=== PATIENT | female | born 1985 | race Caucasian/White ===

== ENCOUNTER 2017-07-04 17:28 | Observation (INO) | payer BC, MEDICAID, OTHER, SELFPAY ==
[2017-07-04] MEDS ORDERED: Ondansetron ODT 4 MG TAB ONE (17:42)
[2017-07-04 18:44] LABS: #Lymphocytes 0.8 thou/uL (1.20-3.40); #Monocytes 0.9 thou/uL (0.11-0.59); #Neutrophils 15.8 thou/uL (1.40-6.50); %Basophils 0.1 % (0.0-1.0); %Eosinophils 0.1 % (0.0-10.0); %Lymphocytes 4.7 % (21.0-51.0); %Monocytes 4.8 % (0.0-10.0); %Neutrophils 90.3 % (42.0-75.0); Hemoglobin 15.1 g/dL (12.0-16.0); Mean Corpuscular HGB CONC 32.5 g/dL (32.0-36.0); Mean Corpuscular Hemoglobin 29.9 pg (27.0-31.0); Mean Platelet Volume 6.9 fL (7.4-10.4); Platelet Count 265 thou/uL (130-400); RBC Distribution Width 12.5 % (11.5-14.5); Red Blood Cell (RBC) Count 5.06 mill/uL (4.20-5.40); White Blood Cell (WBC) Count 17.5 thou/uL (4.8-10.8)
[2017-07-04 18:52] LABS: ALT (SGPT) 13 U/L (8-55); AST (SGOT) 16 U/L (5-34); Albumin 5.2 g/dL (3.5-5.0); Alkaline Phosphatase 65 U/L (40-150); Anion Gap 12 mmol/L (10-20); BUN (Urea Nitrogen) 14 mg/dL (7.0-18.7); Bilirubin, Total 0.6 mg/dL (0.2-1.2); Calc. Creatinine Clearance 0 mL/min (70-130); Calcium 10.3 mg/dL (7.8-10.44); Carbon Dioxide 23 mmol/L (22-29); Chloride 106 mmol/L (98-107); Estimated GFR-MDRD 85; Globulin 3.7 g/dL (2.4-3.5); Glucose 106 mg/dL (70-105); Lipase 13 U/L (8-78); Potassium 3.5 mmol/L (3.5-5.1); Protein, Total 8.9 g/dL (6.0-8.3); Sodium 137 mmol/L (136-145)
[2017-07-04 19:16] LABS: Bilirubin Small (Negative); Blood, Urine Large (Negative); Clarity CLOUDY (Clear); Glucose, Urine (Dipstick) Negative (Negative); Leukocyte Trace (Negative); Nitrite Negative (Negative); Pregnancy Test - Urine (BHCG) Negative (Negative); Pregu Control Background? CLEAR/WHITE (CLR/WHITE); Pregu Control Bar Appear? YES (CONTROL BAR); Protein, Urine (Dipstick) 30 mg/dL (Neg-Trace); Specific Gravity 1.033 (1.002-1.036); Specific Gravity, Urine 1.033 (1.002-1.036); Urobilinogen 0.2 mg/dL (0.2-1.0); pH, Urine 5.5 (5.0-9.0)
[2017-07-04 19:18] LABS: Bacteria/HPF Rare-Few HPF (None Seen); Pathc Cast-AUWi Flag 2.47 (0-2.49)
[2017-07-04 19:42] LABS: Hyaline Casts/LPF 0-3 HYALINE CAST LPF (0-3 Hyaline); RBC/HPF GREATER THAN 50-TNTC HPF (0-3)
--- NOTE | 2017-07-04 19:48 | ULT ---
RIGHT UPPER QUADRANT ABDOMINAL ULTRASOUND: 07/04/17 COMPARISON: 08/12/12. HISTORY: Right upper quadrant abdominal pain. TECHNIQUE: Multiplanar jorge scale and color doppler images were obtained in a right upper quadrant abdominal ult rasound. FINDINGS: The liver is normal in echogenicity without focal lesions or intrahepatic ductal dilatation. The gall bladder is normal without stones, sludge, gallbladder wall thickening, or pericholecystic fluid. The common bile duct is normal measuring 5 mm. The visualized portions of the pancreas are unremarkable. The right kidney is normal in echogenicity without hydronephrosis or calculus and measures 12.4 cm in length. IMPRESSION: Unremarkable exam. POS: [facility]
[2017-07-04] MEDS ORDERED: Promethazine HCl 25 MG/ML VIAL ONE (19:56)
[2017-07-04] MEDS ORDERED: Pantoprazole 40 MG VIAL ONE (19:56)
--- NOTE | 2017-07-04 21:09 | RAD ---
TWO VIEWS OF THE ABDOMEN AND UPRIGHT VIEW OF THE CHEST: 07/04/17 COMPARISON: None. HISTORY: Sharp abdominal pain with burning sensation in the chest. FINDINGS: Supine and upright views of the abdomen and upright view of the chest shows a nonspecific, nonobstruc jessica bowel gas pattern. Tubular occlusion devices are seen in the pelvis. No free air or air fluid lev els are seen on upright examination. The cardiomediastinal silhouette is normal in size. there is no evidence of consolidation, mass or pl eural effusion. IMPRESSION: Unremarkable exam. POS: [facility]
[2017-07-04] MEDS ORDERED: Lidocaine Viscous Sol 2% 15 ml UD Cup ONE (21:57)
[2017-07-04] MEDS ORDERED: Mag-Al 1200 mg/1200 mg/30 ML UDCUP ONE (21:57)
[2017-07-04 23:19] LABS: Amphetamine Not Detected (NotDetected); Barbiturates Screen Not Detected (NotDetected); Benzodiazepine Screen Not Detected (NotDetected); Cocaine Metabolite Screen Not Detected (NotDetected); Medtox Control Line Valid? VALID (VALID); Medtox Reader # READER 1; Methadone Not Detected (NotDetected); Methamphetamine Not Detected (NotDetected); Opiate Screen Not Detected (NotDetected); Oxycodone Screen Not Detected (NotDetected); Phencyclidine (PCP) Not Detected (NotDetected); THC/Cannabinoid Screen Detected (NotDetected); Tricyclic Screen Not Detected (NotDetected)
[2017-07-04] MEDS ORDERED: Haloperidol Lactate 5 MG/ML VIAL ONE (23:26)
[2017-07-05] MEDS ORDERED: Acetaminophen 325 MG TAB PO PRN (00:10)
[2017-07-05] MEDS ORDERED: Ondansetron HCl/PF 4 MG/2 ML Vial IVP PRN (00:10)
--- NOTE | 2017-07-05 00:16 | PDOC.FPRHP ---
- History of Present Illness Chief Complaint: abd pain, n/v History of Present Illness: Obie Rudd is a 31 year old female with a PMH of gastritis who presented to the ED with complaints of abdominal pain and n/v. She states that the abdominal pain started intensified today. States that she has chronic abdominal pain that is normal controlled with OTC zantac and tums. The pain was much worse today and associated with nausea and vomiting, prompting her to come to the ED. She was admitted for similar symptoms in 2016 and had EGD performed at that time showing erosive gastritis. She uses marijuana daily to help her go to sleep. The pain is located in the epigastric region and radiates to her back. Describes pain as burning sensation. Denies fever, chills, chest pain, dyspnea, dysuria, increased urinary frequency, GI bleeding. ED Course: In the ED, she received zofran 4 mg X2, 1L NS bolus X2, IV protonix, phenergan, GI cocktail-white, haldol 2 mg, ketamine 0.25 mg/kg. - Allergies/Adverse Reactions Allergies Allergy/AdvReac Type Severity Reaction Status Date / Time No Known Allergies Allergy Verified 07/05/17 01:34 - Home Medications Medication Instructions Recorded Confirmed Type Omeprazole 40 mg PO DAILY #30 capsule. 07/05/17 Rx Ondansetron [Zofran ODT] 4 mg PO Q4HR PRN #30 tab 07/05/17 Rx Comments: patient states that she does not take any regular home medications - History PMHx: Erosive gastritis PSHx: essure FHx: noncontributory Social: endorses daily marijuana use, 1 ppd smoker, social alcohol drinker - Review of Systems General: reports: weight/appetite/sleep changes, fatigue. denies: fever/chills , night sweats Eyes: denies: eye pain, vision changes ENT: denies: nasal congestion, rhinorrhea Respiratory: denies: cough, congestion, shortness of breath, exercise intolerance Cardiovascular: denies: chest pain, palpitation, edema, paroxysmal nocturnal dyspnea, orthopnea Gastrointestinal: reports: nausea, vomiting, abdominal pain. denies: diarrhea, constipation, GI bleeding Genitourinary: denies: incontinence, dysuria, polyuria Skin: denies: rashes, lesions, jaundice Musculoskeletal: denies: pain, tenderness, stiffness, swelling Neurological: denies: numbness, syncope, seizure Psychological: denies: anxiety, depression - Vital signs BP: 125/87 HR: 94 RR: 18 Tmax: 98.9 Pox: 99% on RA Wt: 77.7 kg - Physical Exam Constitutional: NAD, awake, alert and oriented, well developed HEENT: normocephalic and atraumatic, PERRLA, EOMI, conjunctiva clear, no scleral icterus, grossly normal vision, TM's clear and intact, grossly normal hearing, normal nasal mucosa, MMM, oropharynx clear Neck: supple, FROM, trachea midline, no LAD Chest: no-tender to palpation Heart: RRR, normal S1/S2, no murmurs/rubs/gallops, pulses present, no edema Lungs: CTAB, no respiratory distress, good air movement, no rales/rhonchi Abdomen: soft, bowel sounds present, no masses/distention, other (no CVAT) -Abdomen: mild ttp in epigastric region Musculoskeletal: normal structure, normal tone, ROM grossly normal Neurological: no focal deficit, CN II-XII intact, normal sensation Skin: no rash/lesions, good turgor, capillary refill <2 seconds Heme/Lymphatic: no unusual bruising or bleeding, no purpura Psychiatric: normal mood and affect, intact recent and remote memory, other ( poor insight) FMR H&P: Results - Labs Result Diagrams: 07/05/17 04:28 07/05/17 04:28 Lab results: WBC 17.5 thou/uL (4.8-10.8) H 07/04/17 18:36 Hgb 15.1 g/dL (12.0-16.0) 07/04/17 18:36 Hct 46.5 % (36.0-47.0) 07/04/17 18:36 MCV 92.0 fl (81.0-99.0) 07/04/17 18:36 Plt Count 265 thou/uL (130-400) 07/04/17 18:36 Neutrophils % 90.3 % (42.0-75.0) H 07/04/17 18:36 Sodium 137 mmol/L (136-145) 07/04/17 18:36 Potassium 3.5 mmol/L (3.5-5.1) 07/04/17 18:36 Chloride 106 mmol/L (98-107) 07/04/17 18:36 Carbon Dioxide 23 mmol/L (22-29) 07/04/17 18:36 BUN 14 mg/dL (7.0-18.7) 07/04/17 18:36 Creatinine 0.79 mg/dL (0.6-1.1) 07/04/17 18:36 Glucose 106 mg/dL (70-105) H 07/04/17 18:36 Calcium 10.3 mg/dL (7.8-10.44) 07/04/17 18:36 Total Bilirubin 0.6 mg/dL (0.2-1.2) 07/04/17 18:36 AST 16 U/L (5-34) 07/04/17 18:36 ALT 13 U/L (8-55) 07/04/17 18:36 Alkaline Phosphatase 65 U/L (40-150) 07/04/17 18:36 Serum Total Protein 8.9 g/dL (6.0-8.3) H 07/04/17 18:36 Albumin 5.2 g/dL (3.5-5.0) H 07/04/17 18:36 Lipase 13 U/L (8-78) 07/04/17 18:36 Urine Ketones 80 mg/dL (Negative) H 07/04/17 18:24 Urine Blood Large (Negative) H 07/04/17 18:24 Urine Nitrite Negative (Negative) 07/04/17 18:24 Ur Leukocyte Esterase Trace (Negative) H 07/04/17 18:24 Urine RBC GREATER THAN 50-TNTC HPF (0-3) H 07/04/17 18:24 Urine WBC 4-6 HPF (0-3) H 07/04/17 18:24 Ur Squamous Epith Cells 11-20 HPF (0-3) H 07/04/17 18:24 Urine Bacteria Rare-Few HPF (None Seen) 07/04/17 18:24 - EKG Interpretation EKG: NSR FMR H&P: A/P - Problem List (1) Abdominal pain Status: Acute Code(s): R10.9 - UNSPECIFIED ABDOMINAL PAIN (2) Nausea & vomiting Status: Acute Code(s): R11.2 - NAUSEA WITH VOMITING, UNSPECIFIED - Plan (1) Gastritis, erosive: suspected - Hx of erosive gastritis in 2016 on EGD - DDx also includes ulcer or H. pylori or cyclic vomiting syndrome or cannabinoid hyperemesis syndrome - Continue n/v control with zofran - Continue GI cocktail, IV pepcid, IV protonix - Check H. pylori Ab and Ag (2) Intractible n/v - Vomiting decreased in ED - see above (3) Marijuana abuse - Likely contributing to symptoms - Recommended cessation - pt denied use repeatedly until UDS returned positive CODE STATUS: FULL CODE Disposition/LOS: Anticipate discharge home after <48 obs FMR H&P: Upper Level - Pertinent history PCP: [facility] Patient is a 31yo CF with PMHx of GERD, mild erosive gastritis (EGD on 09/2015) and H.pylori (2016) who presents with epigastric pain, nausea and vomiting. Patient reports hx of epigastric pain at baseline but reports it worsened today. Associated with N/V, chills and dizziness. States that everything she eats makes it worse. Denies any hematemesis or coffee ground emesis. She was hospitalized for similar presentation in 2016 where she had an EGD done by Dr. Ragland showing mild erosive gastritis. Biopsy was negative for H.pylori. However , according to records she had been diagnosed with H. pylori by her PCP earlier and was on abx for treatment. She was discharged on PPI but states she lost her job and has not been able to afford any of her meds. Denies NSAID use. ED: ketamine 0.25mg/kg IV x2, 1L NS x2, GI cocktail, protonix 40iv, Phenergan 12.5mg IV, Zofran 4mg IV - Pertinent findings T N/A BP 125/87 HR 94 RR 18 O2 99% on RA Wt 77kg General: NAD Heart: S1 S2, RRR Lungs: CTAB Abd: soft, TTP at epigastric Ext: no cyanosis or edema WBC 17.5 AST/ALT 16/13 Lipase 13 Amylase 61 Tbili 0.6 Alk Phos 65 EKG: no QTc prolongation RUQ US: negative KUB: negative - Plan Date/Time: 07/05/17 0016 1. Intractable N/V w/ epigastric pain: Patient with hx of mild erosive gastritis on EGD in 2016 and hx of H. pylori. Has not been taking PPI as she recently lost her job and cannot afford her medications. KUB and RUQ negative. Lipase/amylase negative. Suspect likely 2/2 exacerbation of gastritis vs. H.pylori vs cannabinoid hyperemesis. Symptomatic control with GI cocktail, protonix and Zofran. Obtain H. pylori stool Ag. 2. Marijuana abuse: patient repeatedly denied any use of drugs until UDS revealed + for marijuana. Admits to using it nightly now. 3. Leukocytosis: currently no source of infection. Monitor 4. PILAR: previously taking Effexor but has not been able to afford medications as of late. Hold anyways due to risk of QTc prolongation while on zofran. 5. PPx: SCDs/protonix 6. Diet: NPO 7. Code Status: Full I, Eve Reinoso, have evaluated this patient and agree with findings/ plan as outlined by international account manager resident. Pertinent changes/additions are listed here. Attending Addendum - Attending Addendum Date/Time: 07/05/17 0300 I personally evaluated the patient and discussed the management with Dr. Garner and Dr. Reinoso I agree with the History, Examination, Assessment and Plan documented above with any addition or exceptions noted below. 31 yo female placed in obs overnight for evaluation of persistent N/V with abdominal pain. Labs reviewed. Will treat symptomatically. Restart PPI. History of cannibus abuse possibly a component as well. No sick contacts but also possible. Trend labs in Am. Imaging reviewed. Lisy
[2017-07-05] MEDS: Sodium Chloride 0.9% 1,000 ML IV SCH ×2 (01:22→09:49)
[2017-07-05 01:32] VITALS: BMI 26.8
[2017-07-05] MEDS ORDERED: Ketorolac Tromethamine 30 MG/ML VIAL IM SCH (03:30)
[2017-07-05 04:48] LABS: #Lymphocytes 0.6 thou/uL (1.20-3.40); #Monocytes 0.2 thou/uL (0.11-0.59); #Neutrophils 9.2 thou/uL (1.40-6.50); %Eosinophils 0.1 % (0.0-10.0); %Lymphocytes 5.9 % (21.0-51.0); %Monocytes 2.4 % (0.0-10.0); %Neutrophils 91.7 % (42.0-75.0); Hemoglobin 12.8 g/dL (12.0-16.0); Mean Corpuscular HGB CONC 33.6 g/dL (32.0-36.0); Mean Corpuscular Volume 92.2 fl (81.0-99.0); Mean Platelet Volume 6.8 fL (7.4-10.4); Platelet Count 216 thou/uL (130-400); RBC Distribution Width 12.4 % (11.5-14.5); Red Blood Cell (RBC) Count 4.13 mill/uL (4.20-5.40); White Blood Cell (WBC) Count 10.1 thou/uL (4.8-10.8)
[2017-07-05 05:02] LABS: Anion Gap 9 mmol/L (10-20); BUN (Urea Nitrogen) 11 mg/dL (7.0-18.7); Calc. Creatinine Clearance 163 mL/min (70-130); Calcium 8.8 mg/dL (7.8-10.44); Carbon Dioxide 22 mmol/L (22-29); Chloride 110 mmol/L (98-107); Estimated GFR-MDRD Greater than 90; Glucose 124 mg/dL (70-105); Potassium 3.5 mmol/L (3.5-5.1); Sodium 137 mmol/L (136-145)
[2017-07-05] MEDS ORDERED: Pantoprazole 40 MG VIAL IVP SCH (09:00)
[2017-07-05] MEDS ORDERED: Famotidine/PF 20 mg/2ml Vial SLOW IVP SCH (09:00)
--- NOTE | 2017-07-05 09:14 | PDOC.FM ---
- Subjective Subjective: Pt had continued vomiting overnight. Vomited shortly after receiving GI cocktail. Otherwise, reports pain is improved and she feels slightly better. Denies cp, sob, diarrhea and constipation. Did have diarrhea yesterday. No melena, coffee ground emesis or hematemesis. - Objective Vital Signs & Weight: Vital Signs (12 hours) Temp Pulse Resp BP Pulse Ox 07/05/17 07:18 98.5 F 94 20 07/05/17 07:16 98.5 F 94 20 134/71 96 I&O: 07/04/17 07/05/17 07/06/17 06:59 06:59 06:59 Intake Total 529 Output Total 200 Balance 329 Result Diagrams: 07/05/17 04:28 07/05/17 04:28 <Emery Fulton - Last Filed: 07/05/17 09:11> - Objective Vital Signs & Weight: Vital Signs (12 hours) Temp Pulse Resp BP Pulse Ox 07/05/17 11:14 98.0 F 78 20 122/80 96 07/05/17 07:18 98.5 F 94 20 07/05/17 07:16 98.5 F 94 20 134/71 96 I&O: 07/04/17 07/05/17 07/06/17 06:59 06:59 06:59 Intake Total 529 503 Output Total 200 Balance 329 503 Result Diagrams: 07/05/17 04:28 07/05/17 04:28 <Sebas Watikns - Last Filed: 07/05/17 12:18> Phys Exam - Physical Examination Constitutional: NAD HEENT: PERRLA, sclera anicteric Neck: no nodes, no JVD Respiratory: no wheezing, no rales, no rhonchi, clear to auscultation bilateral Cardiovascular: RRR, no significant murmur, no rub Gastrointestinal: soft, no distention, positive bowel sounds No guarding, mild epigastric ttp, no rebound Musculoskeletal: no edema, pulses present Neurological: non-focal, moves all 4 limbs Skin: no rash, cap refill <2 seconds <Emeyr Fulton - Last Filed: 07/05/17 09:11> Dx/Plan (1) Abdominal pain Code(s): R10.9 - UNSPECIFIED ABDOMINAL PAIN Status: Acute (2) Nausea & vomiting Code(s): R11.2 - NAUSEA WITH VOMITING, UNSPECIFIED Status: Acute (3) Dehydration Code(s): E86.0 - DEHYDRATION Status: Acute (4) Marijuana abuse Code(s): F12.10 - CANNABIS ABUSE, UNCOMPLICATED Status: Acute - Plan Plan: (1) Gastritis - Hx of erosive gastritis in 2016 on EGD, pt does not have any evidence of hemoptysis/coffeeground emesis/melena or blood loss. Reported some relief with hot shower - DDx also includes ulcer or H. pylori or cyclic vomiting syndrome or cannabinoid hyperemesis syndrome - Continue n/v control with zofran, one dose IV phernergan - Continue GI cocktail, IV protonix; cocktail to be given after phenergan - Check H. pylori Ab and Ag, pending (2) Intractible n/v - Vomiting decreased in ED - see above (3) Marijuana abuse - Likely contributing to symptoms - Recommended cessation - hot showers, regularly; pt did reports some relief with hot shower. 4) Abd pain: see #1 5) Dehydration: resolved, cont IVF NS @ 120. 6) Hematuria: r/o, pt menstrating, + RBC 2/2 contaminant Dispo: Stable, labs normalized. If pt N/V controlled throughout day, likely DC to home with instruction to f/u OP. <Emery Fulton - Last Filed: 07/05/17 09:11> Attending Addendum - Attending Addendum Date/Time: 07/05/17 1217 I personally evaluated the patient and discussed the management with Dr. Fulton. I agree with the History, Examination, Assessment and Plan documented above with any addition or exceptions noted below. Patient reports improvement in nausea after Phenergan administration and feels better after GI cocktail. Likely a component of cannabinoid hyperemesis syndrome and maybe some overlying gastritis. Advance diet today and if can tolerate clears, discharge home with anti nausea medication and outpatient follow up. Needs cessation of marijuana. <Sebas Watkins - Last Filed: 07/05/17 12:18>
[2017-07-05] MEDS ORDERED: Promethazine HCl 25 MG/ML VIAL IM/IV PRN (09:19)
[2017-07-05] MEDS ORDERED: Promethazine HCl 25 MG/ML VIAL IM PRN (09:24)
[2017-07-05] MEDS ORDERED: Lidocaine 2% Viscous Solution 20 ML, Aluminum & Magnesium Hydroxide 30 ML, Donnatal Eli... SSW SCH (09:30)
[2017-07-05 12:00] VITALS: BP 122/80; TEMP 98
--- NOTE | 2017-07-06 13:05 | DIS-2 ---
DATE OF SERVICE: 07/05/2017 LOCATION: [place], [place]. DATE OF ADMISSION: 07/04/2017 DATE OF DISCHARGE: 07/05/2017 ADMITTING ATTENDING: Dr. Yamileth Mejia. DISCHARGE ATTENDING: Dr. Sebas Watkins. CO-SIGNER: Dr. Sebas Watkins. RESIDENT PHYSICIAN: Emery Fulton D.O. CONSULTS: None. PROCEDURES: 1. Abdomen ultrasound done on 07/04/2017 showed unremarkable exam. 2. Acute abdominal series done on 07/04/2017 showed unremarkable exam. PRIMARY DIAGNOSES: 1. Intractable nausea, vomiting. 2. Abdominal pain. 3. Dehydration. SECONDARY DIAGNOSES: 1. Marijuana abuse. 2. Generalized anxiety disorder. 3. Hypophosphatemia. 4. Hypokalemia. 5. Dehydration. DISCHARGE MEDICATIONS: 1. Omeprazole 40 mg daily. 2. Zofran 4 mg p.o. q.4 hours for nausea and vomiting. DISCONTINUED MEDICATIONS: None. HISTORY OF PRESENT ILLNESS AND HOSPITAL COURSE: The patient is a 31-year-old female, who came in wit h intractable nausea and vomiting in addition to abdominal pain. The pain started to the ER. The pa alan reported that she has chronic abdominal pain, but it is normally controlled with over the count er Zantac and Tums. However, on the day of admission, she was unable to control the pain. The patie nt did have a previous EGD in 2016, which showed erosive gastritis. Importantly, the patient does no te daily marijuana use to try and help her go to sleep. Pain was described as burning in sensation. Initial workup was negative for any acute process. Laboratories were pertinent for a hemoglobin of 15.1, hematocrit of 46.5 and after IV fluid resuscitation, her discharge hemoglobin was 12.8 and greg tocrit 38.1. Importantly, white blood cell count was 17.5 on admission and was 10.1 on discharge. T his is likely secondary to hemoconcentration from the nausea and vomiting and had normalized without any use of antibiotic therapy. The patient's liver function tests were all within normal limits. Li pase was within normal limits. Urinalysis was positive for 80 ketones. A tox screen was positive fo r cannabinoids. An H. pylori antibody studies including H. pylori IgG, IgA, and IgM were all negativ e. Ultimately, the patient was admitted for mild dehydration and intractable nausea and vomiting, wh ich was controlled with IM Phenergan and a GI cocktail with helped with her pain as well as decreased nausea and vomiting. Given her history of known erosive gastritis with her previous EGD, t he patient was instructed to follow up outpatient with a supervisor mirror fabrication for her abdominal pain an d was sent home on her omeprazole 40 daily, to be continued indefinitely until instructed otherwise b y a supervisor mirror fabrication. Importantly, the H. pylori studies were all negative. Ultimately, the patient had an uncomplicated hospital course, was tolerating p.o. at the time of disc harge and left the hospital in stable condition. DISPOSITION: The patient left the hospital in stable condition. DISCHARGE INSTRUCTIONS: 1. Location: Home. 2. Diet: Regular. 3. Activity: Ad-anant. 4. Followup: Follow up with primary care provider in 7-10 days. We would recommend additionally a GI referral with possible additional workup in the future after primary care provider evaluation.
[2017-07-09 20:10] LABS: H. pylori IgA ABS Less than 9.0 units (0.0-8.9); H. pylori IgG ABS 0.26 (0.00-0.79); H. pylori IgM ABS Less than 9.0 units (0.0-8.9)
== END 2017-07-05 14:59 | disposition home or self-care (01) ==
LOC: ERS 17:28 → 2SW 07-05 01:15
PROVIDERS: ADMIT Student in an Organized Health Care Education/Training Program; ATTEND Student in an Organized Health Care Education/Training Program
DX: R11.2 Nausea with vomiting, unspecified (principal); R10.13 Epigastric pain; R10.31 Right lower quadrant pain; F12.10 Cannabis abuse, uncomplicated; F41.1 Generalized anxiety disorder; E83.39 Other disorders of phosphorus metabolism; E87.6 Hypokalemia; E86.0 Dehydration; F17.210 Nicotine dependence, cigarettes, uncomplicated
CPT/HCPCS: 36415; 74022; 76705; 80048; 80053; 80306; 81003; 81015; 81025; 82150; 83690; 85025; 93005; 96361; 96365; 96372; 96375; 96376; 99406; C9113; G0378; J1630; J1885; J2405; J2550; Q0162; S0028

== ENCOUNTER 2020-06-18 12:43 | Emergency (ER) | payer MEDICAID ==
[2020-06-18] MEDS ORDERED: Morphine 4 MG/ML VIAL ONE ×2 (13:03→13:29)
[2020-06-18] MEDS ORDERED: Lidocaine Viscous Sol 2% 15 ml UD Cup ONE ×2 (13:03→13:29)
[2020-06-18] MEDS ORDERED: Famotidine/PF 20 mg/2ml Vial ONE ×2 (13:03→13:29)
[2020-06-18] MEDS ORDERED: Mag-Al 1200 mg/1200 mg/30 ML UDCUP ONE ×2 (13:03→13:29)
[2020-06-18] MEDS ORDERED: Haloperidol Lactate 5 MG/ML VIAL ONE ×2 (13:03→13:29)
[2020-06-18 13:41] LABS: #Lymphocytes 0.8 thou/uL (1.20-3.40); #Monocytes 0.2 thou/uL (0.11-0.59); #Neutrophils 9.6 thou/uL (1.40-6.50); %Basophils 0.1 % (0.0-1.0); %Eosinophils 0.1 % (0.0-10.0); %Lymphocytes 7.8 % (21.0-51.0); %Monocytes 2.2 % (0.0-10.0); %Neutrophils 89.9 % (42.0-75.0); Hemoglobin 13.1 g/dL (12.0-16.0); Mean Corpuscular HGB CONC 33.8 g/dL (32.0-36.0); Mean Corpuscular Hemoglobin 30.5 pg (27.0-31.0); Mean Corpuscular Volume 90.2 fL (78.0-98.0); Mean Platelet Volume 6.9 fL (7.4-10.4); Platelet Count 279 thou/uL (130-400); RBC Distribution Width 14.5 % (11.5-14.5); Red Blood Cell (RBC) Count 4.31 mill/uL (4.20-5.40); White Blood Cell (WBC) Count 10.7 thou/uL (4.8-10.8)
[2020-06-18 14:02] LABS: ALT (SGPT) 14 U/L (8-55); AST (SGOT) 16 U/L (5-34); Albumin 4.7 g/dL (3.5-5.0); Alkaline Phosphatase 68 U/L (40-110); Anion Gap 13 mmol/L (10-20); BUN (Urea Nitrogen) 10 mg/dL (7.0-18.7); Bilirubin, Total 0.3 mg/dL (0.2-1.2); Calc. Creatinine Clearance 0 mL/min (70-130); Calcium 10.5 mg/dL (7.8-10.44); Carbon Dioxide 24 mmol/L (22-29); Chloride 107 mmol/L (98-107); Globulin 3.5 g/dL (2.4-3.5); Glucose 135 mg/dL (70-105); Potassium 3.7 mmol/L (3.5-5.1); Protein, Total 8.2 g/dL (6.0-8.3); Sodium 140 mmol/L (136-145)
[2020-06-18] MEDS ORDERED: Ondansetron PF 4 MG/2 ML Vial ONE (15:57)
[2020-06-18 16:26] LABS: Bacteria/HPF None Seen HPF (None Seen); Bilirubin Negative (Negative); Blood, Urine 2+ (Negative); Clarity Clear (Clear); Glucose, Urine (Dipstick) 70 mg/dL (Negative); Ketone, Urine Negative (Negative); Leukocyte Negative Leu/uL (Negative); Nitrite Negative (Negative); Protein, Urine (Dipstick) 10 mg/dL (Neg-Trace); RBC/HPF 0-3 HPF (0-3); Specific Gravity, Urine 1.023 (1.002-1.036); Squamous Epithelial 0-3 HPF (0-3); Urobilinogen Normal mg/dL (Less than 2); WBC/HPF 0-3 HPF (0-3)
[2020-06-18 17:52] LABS: Specific Gravity 1.023 (1.002-1.036)
[2020-06-18 17:55] LABS: Pregnancy Test - Urine (BHCG) Negative (Negative); Pregu Control Background? CLEAR/WHITE (CLR/WHITE); Pregu Control Bar Appear? YES (CONTROL BAR)
[2020-06-18] MEDS ORDERED: Promethazine HCl 25 MG/ML VIAL ONE (18:09)
[2020-06-18 20:57] LABS: SARS-CoV-2 PCR by NAA Not Detected (NotDetected)
== END 2020-06-18 19:09 | disposition home or self-care (01) ==
LOC: ERS 12:43
DX: R11.15 Cyclical vomiting syndrome unrelated to migraine (principal); F17.210 Nicotine dependence, cigarettes, uncomplicated
CPT/HCPCS: 36415; 71045; 80053; 81003; 81015; 81025; 84484; 85025; 87635; 93005; 96374; 96375; J1630; J2270; J2405; J2550; S0028; U0003; U0005

== ENCOUNTER 2020-06-20 14:39 | Inpatient (IN) | payer MEDICAID, OTHER ==
[~2020-06-20 14:39] MED LIST: Iopamidol-370 76% 500 ML 1 ML ONE
[2020-06-20] MEDS ORDERED: Ondansetron PF 4 MG/2 ML Vial ONE (15:05)
[2020-06-20 15:30] LABS: #Basophils 0.1 thou/uL (0.0-0.2); #Lymphocytes 1.8 thou/uL (1.20-3.40); #Monocytes 1.1 thou/uL (0.11-0.59); #Neutrophils 6.6 thou/uL (1.40-6.50); %Basophils 0.7 % (0.0-1.0); %Eosinophils 0.1 % (0.0-10.0); %Lymphocytes 19.1 % (21.0-51.0); %Neutrophils 69.1 % (42.0-75.0); Hemoglobin 13.1 g/dL (12.0-16.0); Mean Corpuscular HGB CONC 32.3 g/dL (32.0-36.0); Mean Corpuscular Volume 90.1 fL (78.0-98.0); Mean Platelet Volume 6.7 fL (7.4-10.4); Platelet Count 318 thou/uL (130-400); RBC Distribution Width 14.6 % (11.5-14.5); Red Blood Cell (RBC) Count 4.51 mill/uL (4.20-5.40); White Blood Cell (WBC) Count 9.5 thou/uL (4.8-10.8)
[2020-06-20 15:53] LABS: ALT (SGPT) 36 U/L (8-55); AST (SGOT) 48 U/L (5-34); Albumin 4.8 g/dL (3.5-5.0); Alkaline Phosphatase 66 U/L (40-110); Anion Gap 15 mmol/L (10-20); BUN (Urea Nitrogen) 7 mg/dL (7.0-18.7); Bilirubin, Total 0.4 mg/dL (0.2-1.2); Calc. Creatinine Clearance 0 mL/min (70-130); Calcium 9.8 mg/dL (7.8-10.44); Carbon Dioxide 28 mmol/L (22-29); Chloride 99 mmol/L (98-107); Globulin 3.7 g/dL (2.4-3.5); Glucose 113 mg/dL (70-105); Lipase 11 U/L (8-78); Protein, Total 8.5 g/dL (6.0-8.3); Sodium 139 mmol/L (136-145)
[2020-06-20 15:55] LABS: Bacteria/HPF None Seen HPF (None Seen); Bilirubin Negative (Negative); Blood, Urine Negative (Negative); Clarity Extra Turbid (Clear); Glucose, Urine (Dipstick) Normal (Negative); Ketone, Urine 10 mg/dL (Negative); Leukocyte Negative Leu/uL (Negative); Nitrite Negative (Negative); Protein, Urine (Dipstick) 50 mg/dL (Neg-Trace); RBC/HPF 0-3 HPF (0-3); Specific Gravity, Urine 1.027 (1.002-1.036); Squamous Epithelial 0-3 HPF (0-3); Urobilinogen Normal mg/dL (Less than 2); WBC/HPF None Seen HPF (0-3)
[2020-06-20 15:57] LABS: Pregnancy Test - Urine (BHCG) Negative (Negative); Pregu Control Background? CLEAR/WHITE (CLR/WHITE); Pregu Control Bar Appear? YES (CONTROL BAR); Specific Gravity 1.027 (1.002-1.036)
[2020-06-20 16:01] LABS: Acetaminophen Less than 6.0 mcg/mL (10.0-30.0); Alcohol Less than 10 mg/dL (Less than 10); Salicylate Less than 8.0 mg/dL (15.0-30.0)
[2020-06-20] MEDS ORDERED: Mag-Al 1200 mg/1200 mg/30 ML UDCUP ONE (16:43)
[2020-06-20] MEDS ORDERED: Lidocaine Viscous Sol 2% 15 ml UD Cup ONE (16:43)
[2020-06-20] MEDS ORDERED: Metoclopramide HCl 10 MG/2 ML VIAL ONE (16:44)
[2020-06-20] MEDS ORDERED: Pantoprazole 40 MG VIAL ONE (16:44)
[2020-06-20 17:51] LABS: Amphetamine Not Detected (NotDetected); Barbiturates Screen Not Detected (NotDetected); Benzodiazepine Screen Not Detected (NotDetected); Cocaine Metabolite Screen Not Detected (NotDetected); Medtox Control Line Valid? VALID (VALID); Medtox Reader # READER 1; Methadone Not Detected (NotDetected); Methamphetamine Not Detected (NotDetected); Opiate Screen Not Detected (NotDetected); Oxycodone Screen Not Detected (NotDetected); Phencyclidine (PCP) Not Detected (NotDetected); THC/Cannabinoid Screen Detected (NotDetected); Tricyclic Screen Not Detected (NotDetected)
[2020-06-20] MEDS ORDERED: Haloperidol Lactate 5 MG/ML VIAL ONE ×2 (18:20→18:33)
[2020-06-20 19:36] VITALS: BMI 28.4
[2020-06-20] MEDS ORDERED: Promethazine HCl 25 MG/ML VIAL IM PRN (19:39)
[2020-06-20] MEDS ORDERED: Ondansetron ODT 4 MG TAB SL PRN (19:45)
[2020-06-20] MEDS ORDERED: Sodium Chloride 0.9% 1,000 ML IV SCH (19:45)
[2020-06-20] MEDS ORDERED: Ondansetron PF 4 MG/2 ML Vial IVP PRN (19:45)
[2020-06-20] MEDS ORDERED: Potassium Phosphate 30 MMOL in Sodium Chloride 0.9% 500 ML IVPB SCH (20:00)
[2020-06-20] MEDS: Famotidine 20 MG TAB PO SCH (20:18)
[2020-06-20] MEDS: Nicotine 14 MG PATCH TD SCH ×2 (20:18→20:53)
[2020-06-20 21:14] LABS: Phosphorus 2.9 mg/dL (2.3-4.7)
[2020-06-20] MEDS: HYDROcodone/Acetaminophen 5/325 mg Tablet PO PRN (22:05)
[2020-06-20] MEDS: Ondansetron PF 4 MG/2 ML Vial IVP PRN (22:05)
[2020-06-21] MEDS: Potassium Chloride 10 MEQ in Dextrose 5%-Lactated Ringers 1,000 ML IV SCH ×4 (02:21→22:49)
[2020-06-21] MEDS: HYDROcodone/Acetaminophen 5/325 mg Tablet PO PRN (02:47)
[2020-06-21] MEDS: Promethazine HCl 25 MG in Sodium Chloride 0.9% 50 ML IVPB PRN ×4 (04:16→22:12)
[2020-06-21 07:01] LABS: #Basophils 0.1 thou/uL (0.0-0.2); #Lymphocytes 2.2 thou/uL (1.20-3.40); #Monocytes 0.8 thou/uL (0.11-0.59); %Basophils 0.6 % (0.0-1.0); %Eosinophils 0.1 % (0.0-10.0); %Neutrophils 62.2 % (42.0-75.0); Hemoglobin 12.1 g/dL (12.0-16.0); Mean Corpuscular Hemoglobin 30.8 pg (27.0-31.0); Mean Corpuscular Volume 90.7 fL (78.0-98.0); Mean Platelet Volume 6.8 fL (7.4-10.4); Platelet Count 280 thou/uL (130-400); RBC Distribution Width 14.3 % (11.5-14.5); Red Blood Cell (RBC) Count 3.92 mill/uL (4.20-5.40); White Blood Cell (WBC) Count 8.1 thou/uL (4.8-10.8)
[2020-06-21 07:19] LABS: Anion Gap 11 mmol/L (10-20); BUN (Urea Nitrogen) 6 mg/dL (7.0-18.7); Calc. Creatinine Clearance 155 mL/min (70-130); Carbon Dioxide 26 mmol/L (22-29); Chloride 100 mmol/L (98-107); Glucose 115 mg/dL (70-105); Sodium 134 mmol/L (136-145)
[2020-06-21 07:21] LABS: Potassium 2.9 mmol/L (3.5-5.1)
[2020-06-21] MEDS: Ondansetron PF 4 MG/2 ML Vial IVP PRN ×3 (08:16→19:28)
[2020-06-21] MEDS: Famotidine 20 MG TAB PO SCH ×2 (08:19→20:36)
[2020-06-21] MEDS: Pantoprazole 40 MG GRANULES PACKET PO SCH (08:19)
[2020-06-21] MEDS ORDERED: Enoxaparin Sodium 40 MG/0.4 ML SYRINGE SC SCH (09:00)
[2020-06-21] MEDS ORDERED: Potassium Chloride 20 MEQ TAB PO SCH ×2 (09:00→13:00)
[2020-06-21] MEDS ORDERED: Pantoprazole 40 MG VIAL IVP SCH (09:15)
[2020-06-21] MEDS ORDERED: Ketorolac Tromethamine 30 MG/ML VIAL IVP SCH ×2 (09:30→20:30)
[2020-06-21] MEDS: Potassium Chloride 20 MEQ in Premix Bag 1 BAG IVPB SCH ×3 (10:30→14:19)
[2020-06-21] MEDS: Mometasone 200 MCG/Formoterol 5 MCG 120 PUFF INHALER INH SCH (18:58)
[2020-06-21 19:42] LABS: Potassium 3.5 mmol/L (3.5-5.1)
[2020-06-21] MEDS: buPROPion HCl 100 MG TAB PO SCH (20:39)
[2020-06-21] MEDS: Nicotine 14 MG PATCH TD SCH (20:39)
[2020-06-22] MEDS: Ondansetron PF 4 MG/2 ML Vial IVP PRN ×3 (06:40→23:43)
[2020-06-22 06:54] LABS: #Basophils 0.1 thou/uL (0.0-0.2); #Lymphocytes 2.4 thou/uL (1.20-3.40); #Monocytes 0.8 thou/uL (0.11-0.59); #Neutrophils 2.3 thou/uL (1.40-6.50); %Eosinophils 0.1 % (0.0-10.0); %Lymphocytes 43.1 % (21.0-51.0); %Monocytes 14.3 % (0.0-10.0); %Neutrophils 41.5 % (42.0-75.0); Hemoglobin 12.5 g/dL (12.0-16.0); Mean Corpuscular HGB CONC 32.8 g/dL (32.0-36.0); Mean Corpuscular Hemoglobin 29.7 pg (27.0-31.0); Mean Corpuscular Volume 90.6 fL (78.0-98.0); Mean Platelet Volume 6.7 fL (7.4-10.4); Platelet Count 300 thou/uL (130-400); RBC Distribution Width 14.2 % (11.5-14.5); Red Blood Cell (RBC) Count 4.21 mill/uL (4.20-5.40); White Blood Cell (WBC) Count 5.5 thou/uL (4.8-10.8)
[2020-06-22] MEDS ORDERED: Ketorolac Tromethamine 30 MG/ML VIAL IVP SCH (07:00)
[2020-06-22 07:18] LABS: Anion Gap 14 mmol/L (10-20); BUN (Urea Nitrogen) 6 mg/dL (7.0-18.7); Calc. Creatinine Clearance 145 mL/min (70-130); Calcium 9.4 mg/dL (7.8-10.44); Carbon Dioxide 25 mmol/L (22-29); Chloride 102 mmol/L (98-107); Glucose 107 mg/dL (70-105); Potassium 3.5 mmol/L (3.5-5.1); Sodium 137 mmol/L (136-145)
[2020-06-22] MEDS: Mometasone 200 MCG/Formoterol 5 MCG 120 PUFF INHALER INH SCH ×2 (07:25→18:59)
[2020-06-22] MEDS ORDERED: PROPOFOL 200 MG/20 ML VIAL ONE (09:23)
[2020-06-22] MEDS ORDERED: Ondansetron PF 4 MG/2 ML Vial ONE (09:46)
[2020-06-22] MEDS ORDERED: Fentanyl 100 MCG/2 ML VIAL ONE ×2 (09:46→10:12)
[2020-06-22] MEDS ORDERED: Labetalol HCl 100 MG/20 ML VIAL ONE (10:06)
[2020-06-22] MEDS: Aripiprazole 2 MG TAB PO SCH (11:02)
[2020-06-22] MEDS: buPROPion HCl 100 MG TAB PO SCH ×2 (11:02→21:31)
[2020-06-22] MEDS: Potassium Chloride 10 MEQ in Dextrose 5%-Lactated Ringers 1,000 ML IV SCH ×2 (11:03→23:21)
[2020-06-22] MEDS: Famotidine 20 MG TAB PO SCH (11:09)
[2020-06-22] MEDS: Pantoprazole 40 MG GRANULES PACKET PO SCH (11:09)
[2020-06-22] MEDS: Ketorolac Tromethamine 30 MG/ML VIAL IVP SCH ×2 (16:47→23:33)
[2020-06-22] MEDS: Promethazine HCl 25 MG in Sodium Chloride 0.9% 50 ML IVPB PRN (21:30)
[2020-06-22] MEDS: Nicotine 14 MG PATCH TD SCH (21:31)
[2020-06-23] MEDS: Ondansetron PF 4 MG/2 ML Vial IVP PRN ×3 (06:37→23:54)
[2020-06-23] MEDS: Ketorolac Tromethamine 30 MG/ML VIAL IVP SCH (06:38)
[2020-06-23] MEDS: Mometasone 200 MCG/Formoterol 5 MCG 120 PUFF INHALER INH SCH ×2 (07:33→18:55)
[2020-06-23 07:34] LABS: Hemoglobin 12.9 g/dL (12.0-16.0); Mean Corpuscular HGB CONC 32.2 g/dL (32.0-36.0); Mean Corpuscular Hemoglobin 29.3 pg (27.0-31.0); Mean Corpuscular Volume 91.1 fL (78.0-98.0); Mean Platelet Volume 6.5 fL (7.4-10.4); Platelet Count 342 thou/uL (130-400); RBC Distribution Width 14.4 % (11.5-14.5); White Blood Cell (WBC) Count 6.2 thou/uL (4.8-10.8)
[2020-06-23 07:58] LABS: Anion Gap 11 mmol/L (10-20); BUN (Urea Nitrogen) 6 mg/dL (7.0-18.7); Calc. Creatinine Clearance 132 mL/min (70-130); Calcium 9.4 mg/dL (7.8-10.44); Carbon Dioxide 27 mmol/L (22-29); Chloride 101 mmol/L (98-107); Glucose 97 mg/dL (70-105); Potassium 3.1 mmol/L (3.5-5.1); Sodium 136 mmol/L (136-145)
[2020-06-23] MEDS: Potassium Chloride 10 MEQ in Dextrose 5%-Lactated Ringers 1,000 ML IV SCH ×2 (08:10→20:09)
[2020-06-23] MEDS: buPROPion HCl 100 MG TAB PO SCH ×2 (08:11→20:09)
[2020-06-23] MEDS: Aripiprazole 2 MG TAB PO SCH (08:11)
[2020-06-23 08:43] LABS: Lymphocytes 46 % (21-51); MDiff Complete? YES; Monocytes 25 % (0-10); Neutrophil 29 % (42-75); RBC Morphology Normal
[2020-06-23] MEDS ORDERED: Pantoprazole 40 MG VIAL IVP SCH (09:00)
[2020-06-23] MEDS ORDERED: Potassium Chloride 20 MEQ TAB PO SCH (09:15)
[2020-06-23] MEDS: Promethazine HCl 25 MG in Sodium Chloride 0.9% 50 ML IVPB PRN (10:17)
[2020-06-23] MEDS: Dicyclomine 20 MG TAB PO SCH ×2 (17:14→21:13)
[2020-06-23] MEDS: Sucralfate 1 GM/10 ML UDCUP PO SCH ×2 (17:14→21:13)
[2020-06-23] MEDS: Nicotine 14 MG PATCH TD SCH (20:05)
[2020-06-23] MEDS: Famotidine 20 MG TAB PO SCH (20:09)
[2020-06-23] MEDS: Metoclopramide HCl 10 MG/2 ML VIAL IVP SCH (21:13)
[2020-06-24] MEDS: Metoclopramide HCl 10 MG/2 ML VIAL IVP SCH ×3 (05:48→21:38)
[2020-06-24] MEDS: Mometasone 200 MCG/Formoterol 5 MCG 120 PUFF INHALER INH SCH ×2 (06:48→19:00)
[2020-06-24 08:06] LABS: #Basophils 0.1 thou/uL (0.0-0.2); #Lymphocytes 2.5 thou/uL (1.20-3.40); #Monocytes 1.1 thou/uL (0.11-0.59); #Neutrophils 4.4 thou/uL (1.40-6.50); %Basophils 0.9 % (0.0-1.0); %Eosinophils 0.2 % (0.0-10.0); %Lymphocytes 30.5 % (21.0-51.0); %Monocytes 13.6 % (0.0-10.0); %Neutrophils 54.9 % (42.0-75.0); Hemoglobin 12.6 g/dL (12.0-16.0); Mean Corpuscular HGB CONC 32.4 g/dL (32.0-36.0); Mean Corpuscular Hemoglobin 29.5 pg (27.0-31.0); Mean Corpuscular Volume 90.9 fL (78.0-98.0); Mean Platelet Volume 6.6 fL (7.4-10.4); Platelet Count 322 thou/uL (130-400); RBC Distribution Width 14.6 % (11.5-14.5); Red Blood Cell (RBC) Count 4.27 mill/uL (4.20-5.40); White Blood Cell (WBC) Count 8.1 thou/uL (4.8-10.8)
[2020-06-24 08:19] LABS: Anion Gap 12 mmol/L (10-20); BUN (Urea Nitrogen) 5 mg/dL (7.0-18.7); Calc. Creatinine Clearance 139 mL/min (70-130); Calcium 9.7 mg/dL (7.8-10.44); Carbon Dioxide 28 mmol/L (22-29); Chloride 101 mmol/L (98-107); Glucose 107 mg/dL (70-105); Magnesium 2.1 mg/dL (1.6-2.6); Potassium 3.6 mmol/L (3.5-5.1); Sodium 137 mmol/L (136-145)
[2020-06-24] MEDS: Potassium Chloride 10 MEQ in Dextrose 5%-Lactated Ringers 1,000 ML IV SCH ×2 (08:48→18:13)
[2020-06-24] MEDS: Famotidine 20 MG TAB PO SCH ×2 (08:49→20:17)
[2020-06-24] MEDS: Dicyclomine 20 MG TAB PO SCH ×2 (08:50→13:04)
[2020-06-24] MEDS: Sucralfate 1 GM/10 ML UDCUP PO SCH ×2 (08:50→14:15)
[2020-06-24] MEDS: buPROPion HCl 100 MG TAB PO SCH ×2 (08:50→21:38)
[2020-06-24] MEDS: Aripiprazole 2 MG TAB PO SCH (08:50)
[2020-06-24] MEDS: Ondansetron PF 4 MG/2 ML Vial IVP PRN ×2 (08:58→18:18)
[2020-06-24] MEDS: Nicotine 14 MG PATCH TD SCH (20:14)
[2020-06-25] MEDS: Potassium Chloride 10 MEQ in Dextrose 5%-Lactated Ringers 1,000 ML IV SCH ×2 (02:32→10:08)
[2020-06-25] MEDS: Metoclopramide HCl 10 MG/2 ML VIAL IVP SCH ×2 (05:57→14:30)
[2020-06-25 06:53] LABS: Anion Gap 10 mmol/L (10-20); BUN (Urea Nitrogen) Less than 4 mg/dL (7.0-18.7); Calc. Creatinine Clearance 151 mL/min (70-130); Calcium 9.5 mg/dL (7.8-10.44); Carbon Dioxide 29 mmol/L (22-29); Glucose 103 mg/dL (70-105)
[2020-06-25 06:58] LABS: Chloride 102 mmol/L (98-107); Potassium 3.5 mmol/L (3.5-5.1); Sodium 137 mmol/L (136-145)
[2020-06-25] MEDS: Mometasone 200 MCG/Formoterol 5 MCG 120 PUFF INHALER INH SCH (07:38)
[2020-06-25] MEDS: Famotidine 20 MG TAB PO SCH (08:49)
[2020-06-25] MEDS: buPROPion HCl 100 MG TAB PO SCH (08:49)
[2020-06-25] MEDS: Aripiprazole 2 MG TAB PO SCH (08:49)
[2020-06-25 12:09] VITALS: BP 153/91; TEMP 98.8
== END 2020-06-25 17:05 | disposition home or self-care (01) | DRG 392 ==
LOC: ERS 14:39 → T4-A 18:42
PROVIDERS: ADMIT Internal Medicine; ATTEND Internal Medicine
PROC: 0DJ08ZZ Inspection of Upper Intestinal Tract, Via Natural or Artificial Opening Endoscopic (ICD-10-PCS; principal; 2020-06-22)
DX: R11.2 Nausea with vomiting, unspecified (principal); I42.2 Other hypertrophic cardiomyopathy; F12.10 Cannabis abuse, uncomplicated; K29.50 Unspecified chronic gastritis without bleeding; F32.9 Major depressive disorder, single episode, unspecified; F17.210 Nicotine dependence, cigarettes, uncomplicated; Z80.0 Family history of malignant neoplasm of digestive organs; E87.6 Hypokalemia; F41.1 Generalized anxiety disorder; R19.7 Diarrhea, unspecified; E86.0 Dehydration; I10 Essential (primary) hypertension
CPT/HCPCS: 36415; 74177; 80048; 80053; 80306; 80307; 81003; 81015; 81025; 83690; 83735; 84100; 85025; 93306; 96365; 96372; 96375; C9113; J0500; J1630; J1650; J1885; J2405; J2550; J2704; J2765; J3010; J3480; J7030; Q0162; Q9967

== ENCOUNTER 2021-01-04 15:22 | Emergency (ER) | payer OTHER ==
[2021-01-04 18:14] LABS: #Lymphocytes 1.4 thou/uL (1.20-3.40); #Monocytes 0.7 thou/uL (0.11-0.59); #Neutrophils 5.8 thou/uL (1.40-6.50); %Basophils 0.6 % (0.0-1.0); %Eosinophils 0.1 % (0.0-10.0); %Lymphocytes 17.7 % (21.0-51.0); %Neutrophils 72.6 % (42.0-75.0); Hemoglobin 12.9 g/dL (12.0-16.0); Mean Corpuscular HGB CONC 33.1 g/dL (32.0-36.0); Mean Corpuscular Volume 87.8 fL (78.0-98.0); Mean Platelet Volume 6.5 fL (7.4-10.4); Platelet Count 344 thou/uL (130-400); RBC Distribution Width 14.8 % (11.5-14.5); Red Blood Cell (RBC) Count 4.46 mill/uL (4.20-5.40); White Blood Cell (WBC) Count 7.9 thou/uL (4.8-10.8)
[2021-01-04] MEDS ORDERED: Ketorolac Tromethamine 30 MG/ML VIAL ONE (18:29)
[2021-01-04] MEDS ORDERED: diphenhydrAMINE 50 MG/ML VIAL ONE (18:29)
[2021-01-04] MEDS ORDERED: Haloperidol Lactate 5 MG/ML VIAL ONE (18:31)
[2021-01-04 18:34] LABS: ALT (SGPT) 24 U/L (8-55); AST (SGOT) 17 U/L (5-34); Albumin 4.5 g/dL (3.5-5.0); Alkaline Phosphatase 67 U/L (40-110); Anion Gap 10 mmol/L (10-20); BUN (Urea Nitrogen) 12 mg/dL (7.0-18.7); Bilirubin, Total 0.5 mg/dL (0.2-1.2); Calc. Creatinine Clearance 0 mL/min (70-130); Calcium 9.7 mg/dL (7.8-10.44); Carbon Dioxide 30 mmol/L (22-29); Chloride 98 mmol/L (98-107); Globulin 3.6 g/dL (2.4-3.5); Glucose 126 mg/dL (70-105); Lipase 13 U/L (8-78); Protein, Total 8.1 g/dL (6.0-8.3); Sodium 135 mmol/L (136-145)
[2021-01-04 18:40] LABS: Potassium 2.8 mmol/L (3.5-5.1)
[2021-01-04 18:48] LABS: Bacteria/HPF None Seen HPF (None Seen); Bilirubin Negative (Negative); Blood, Urine Negative (Negative); Clarity Turbid (Clear); Glucose, Urine (Dipstick) 30 mg/dL (Negative); Ketone, Urine Negative (Negative); Leukocyte Negative Leu/uL (Negative); Nitrite Negative (Negative); Protein, Urine (Dipstick) 30 mg/dL (Neg-Trace); RBC/HPF 0-3 HPF (0-3); Specific Gravity, Urine 1.026 (1.002-1.036); Squamous Epithelial 0-3 HPF (0-3); Urobilinogen Normal mg/dL (Less than 2)
[2021-01-04 18:49] LABS: Pregnancy Test - Urine (BHCG) Negative (Negative); Pregu Control Background? CLEAR/WHITE (CLR/WHITE); Pregu Control Bar Appear? YES (CONTROL BAR); Specific Gravity 1.026 (1.002-1.036)
[2021-01-04] MEDS ORDERED: Potassium Bicarbonate/Cit Ac 20 MEQ TAB PO SCH (21:15)
[2021-01-04] MEDS ORDERED: Ondansetron PF 4 MG/2 ML Vial ONE (21:46)
== END 2021-01-04 22:04 | disposition home or self-care (01) ==
LOC: ERS 15:22
DX: E87.6 Hypokalemia (principal); F17.210 Nicotine dependence, cigarettes, uncomplicated; J45.909 Unspecified asthma, uncomplicated; I10 Essential (primary) hypertension; K21.9 Gastro-esophageal reflux disease without esophagitis; Z79.899 Other long term (current) drug therapy
CPT/HCPCS: 74177; 80053; 81003; 81015; 81025; 83690; 84484; 85025; 93005; 96374; 96375; J1200; J1630; J1885; J2405; Q9967

== ENCOUNTER 2021-11-04 06:22 | Emergency (ER) | payer OTHER ==
[2021-11-04] MEDS ORDERED: Ondansetron ODT 4 MG TAB ONE (06:41)
[2021-11-04] MEDS ORDERED: Lorazepam 2 MG/ML VIAL ONE (06:41)
[2021-11-04 07:10] LABS: BHCG - Serum Negative (NEGATIVE); Pregs Control Background? CLEAR/WHITE (CLR/WHITE); Pregs Control Bar Appear? YES (CONTROL BAR)
[2021-11-04 07:20] LABS: ALT (SGPT) 34 U/L (8-55); AST (SGOT) 25 U/L (5-34); Albumin 4.7 g/dL (3.5-5.0); Alkaline Phosphatase 96 U/L (40-110); Anion Gap 14 mmol/L (10-20); BUN (Urea Nitrogen) 9 mg/dL (7.0-18.7); Bilirubin, Total 0.7 mg/dL (0.2-1.2); Calc. Creatinine Clearance 0 mL/min (70-130); Calcium 9.6 mg/dL (7.8-10.44); Carbon Dioxide 25 mmol/L (22-29); Chloride 99 mmol/L (98-107); Estimated GFR 102; Globulin 4.1 g/dL (2.4-3.5); Glucose 106 mg/dL (70-105); Protein, Total 8.8 g/dL (6.0-8.3); Sodium 135 mmol/L (136-145)
[2021-11-04 07:21] LABS: Acetaminophen Less than 10.0 mcg/mL (10.0-30.0); Alcohol Less than 10 mg/dL (Less than 10); Salicylate Less than 8.0 mg/dL (15.0-30.0)
[2021-11-04 07:24] LABS: Potassium 2.9 mmol/L (3.5-5.1)
[2021-11-04] MEDS ORDERED: Potassium Chloride 20 MEQ TAB ONE (07:29)
[2021-11-04 07:33] LABS: Hemoglobin 13.3 g/dL (12.0-16.0); Mean Corpuscular HGB CONC 34.3 g/dL (32.0-36.0); Mean Corpuscular Hemoglobin 31.5 pg (27.0-31.0); Mean Corpuscular Volume 91.7 fL (78.0-98.0); Mean Platelet Volume 7.6 fL (7.4-10.4); Platelet Count 255 thou/uL (130-400); RBC Distribution Width 13.4 % (11.5-14.5); Red Blood Cell (RBC) Count 4.24 mill/uL (4.20-5.40); White Blood Cell (WBC) Count 8.7 thou/uL (4.8-10.8)
[2021-11-04 07:36] LABS: Band 2 % (5-11); Eosinophils 2 % (0-10); Lymphocytes 31 % (21-51); MDiff Complete? YES; Monocytes 7 % (0-10); Neutrophil 58 % (42-75)
[2021-11-04 09:42] LABS: Amphetamine Detected (NotDetected); Barbiturates Screen Not Detected (NotDetected); Benzodiazepine Screen Detected (NotDetected); Cocaine Metabolite Screen Not Detected (NotDetected); Methadone Not Detected (NotDetected); Methamphetamine Detected (NotDetected); Opiate Screen Not Detected (NotDetected); Oxycodone Screen Not Detected (NotDetected); Phencyclidine (PCP) Not Detected (NotDetected); THC/Cannabinoid Screen Detected (NotDetected); Tricyclic Screen Not Detected (NotDetected)
[2021-11-04 09:45] LABS: Clarity Hazy (Clear); Leukocyte Unable to Interpret Leu/uL (Negative); Specific Gravity, Urine 1.005 (1.002-1.036); pH, Urine 6.3 (5.0-9.0)
[2021-11-04 09:46] LABS: Bilirubin Unable to Interpret (Negative); Blood, Urine Unable to Interpret (Negative); Glucose, Urine (Dipstick) Unable to Interpret mg/dL (Negative); Ketone, Urine Unable to Interpret mg/dL (Negative); Nitrite Unable to Interpret (Negative); Protein, Urine (Dipstick) Unable to Interpret mg/dL (Neg-Trace); Urobilinogen UNABLE TO INTERPRET mg/dL (Less than 2)
[2021-11-04 09:47] LABS: Bacteria/HPF 1+ HPF (None Seen); RBC/HPF Greater than 50 HPF (0-3)
== END 2021-11-04 10:13 | disposition home or self-care (01) ==
LOC: ERS 06:22
DX: R44.1 Visual hallucinations (principal); F19.10 Other psychoactive substance abuse, uncomplicated
CPT/HCPCS: 36415; 80053; 80306; 80307; 81003; 81015; 84443; 84703; 85025; 96372; 99284; J2060; Q0162

== ENCOUNTER 2023-08-21 09:09 | Emergency (ER) | payer OTHER ==
[2023-08-21] MEDS ORDERED: Ondansetron PF 4 MG/2 ML Vial ONE ×2 (09:25→13:44)
[2023-08-21 09:40] LABS: #Basophils Less than 0.03 10x3/uL (0.0-0.2); #Eosinphils Less than 0.03 10x3/uL (0.0-0.7); %Basophils 0.1 % (0.0-1.0); %Lymphocytes 7.8 % (21.0-51.0); %Monocytes 4.4 % (0.0-10.0); %Neutrophils 87.4 % (42.0-75.0); Hematocrit 39.5 % (36.0-47.0); Hemoglobin 13.6 g/dL (12.0-16.0); Mean Corpuscular HGB CONC 34.4 g/dL (32.0-36.0); Mean Corpuscular Hemoglobin 28.9 pg (27.0-31.0); Mean Platelet Volume 9.3 fL (7.4-10.4); Platelet Count 352 10x3/uL (130-400); RBC Distribution Width 15.7 % (11.5-14.5)
[2023-08-21] MEDS ORDERED: Morphine 4 MG/ML VIAL ONE (09:47)
[2023-08-21] MEDS ORDERED: Pantoprazole 40 MG VIAL ONE (09:47)
[2023-08-21] MEDS ORDERED: Ketorolac Tromethamine 30 MG (1 mL) VIAL ONE (09:47)
[2023-08-21 10:26] LABS: BHCG - Serum Negative (NEGATIVE); Pregs Control Background? CLEAR/WHITE (CLR/WHITE); Pregs Control Bar Appear? YES (CONTROL BAR)
[2023-08-21 10:28] LABS: Bacteria/HPF None Seen HPF (None Seen); Bilirubin Negative (Negative); Blood, Urine 2+ (Negative); CAUTI Indications for Culture Acute Hematuria; Clarity Extra Turbid (Clear); Glucose, Urine (Dipstick) 200 mg/dL (Negative); Ketone, Urine 10 mg/dL (Negative); Leukocyte Negative Leu/uL (Negative); Nitrite Negative (Negative); Protein, Urine (Dipstick) 600 mg/dL (Neg-Trace); RBC/HPF 21-50 HPF (0-3); Specific Gravity, Urine 1.043 (1.002-1.036); Squamous Epithelial 0-3 HPF (0-3); Urobilinogen Normal mg/dL (Less than 2)
[2023-08-21 10:29] LABS: Pregnancy Test - Urine (BHCG) Negative (Negative); Pregu Control Background? CLEAR/WHITE (CLR/WHITE); Pregu Control Bar Appear? YES (CONTROL BAR); Specific Gravity 1.043 (1.002-1.036)
[2023-08-21 10:33] LABS: ALT (SGPT) 20 U/L (8-55); AST (SGOT) 16 U/L (5-34); Albumin 4.4 g/dL (3.5-5.0); Alkaline Phosphatase 95 U/L (40-110); Anion Gap 14 mmol/L (10-20); BUN (Urea Nitrogen) 9 mg/dL (7.0-18.7); Bilirubin, Total 0.4 mg/dL (0.2-1.2); Calc. Creatinine Clearance 0 mL/min (70-130); Calcium 10.2 mg/dL (7.8-10.44); Carbon Dioxide 22 mmol/L (22-29); Chloride 103 mmol/L (98-107); Estimated GFR 105; Globulin 3.9 g/dL (2.4-3.5); Glucose 150 mg/dL (70-105); Lipase 9 U/L (8-78); Potassium 3.3 mmol/L (3.5-5.1); Protein, Total 8.3 g/dL (6.0-8.3); Sodium 136 mmol/L (136-145)
[2023-08-21 10:38] LABS: Troponin I Less than 0.010 ng/mL (< 0.028)
[2023-08-21 10:47] LABS: Urine Culture Reflex No No
[2023-08-21] MEDS ORDERED: Nitroglycerin 0.4 MG TAB 1 EACH ONE (11:01)
[2023-08-21 13:06] LABS: Lactic Acid 1.3 mmol/L (0.5-2.2)
[2023-08-21] MEDS ORDERED: Potassium Bicarbonate/Cit Ac 20 MEQ TAB ONE (13:27)
== END 2023-08-21 13:45 | disposition home or self-care (01) ==
LOC: ERS 09:09
DX: K25.9 Gastric ulcer, unspecified as acute or chronic, without hemorrhage or perforation (principal); E86.0 Dehydration; E87.6 Hypokalemia; I10 Essential (primary) hypertension; F17.210 Nicotine dependence, cigarettes, uncomplicated
CPT/HCPCS: 36415; 71045; 74177; 80053; 81001; 81025; 83605; 83690; 83735; 83880; 84443; 84484; 84703; 85025; 85379; 93005; 96361; 96374; 96375; 96376; C9113; J1885; J2270; J2405